=== PATIENT | female | born 1990 | race African-American/Black ===

== ENCOUNTER 2025-02-15 06:23 | Inpatient (IN) ==
[2025-02-15] MEDS ORDERED: REGLAN INJ 10 MG VIAL IVP PRN (06:44)
[2025-02-15] MEDS ORDERED: ZOFRAN INJ 4 MG VIAL IVP PRN (06:44)
[2025-02-15] MEDS ORDERED: NUBAIN INJ 20 MG AMP IVP PRN (06:44)
[2025-02-15] MEDS: D5 1/2 NS 1,000 ML 1,000 ML IV SCH (06:53)
[2025-02-15] MEDS: OXYTOCIN 20 UNIT/1,000 ML-NS 20 UNIT/1,000 ML PLAST..BAG IV PRN (07:10)
--- NOTE | 2025-02-15 07:19 | DR.OB ---
OB QUICK NOTE Assessment/Plan (1) Elective induction of labor planned: Assessment/Plan: L&D 02/15/25 at 7:00am S-No complaint. O-Afebrile,VSS [id number] with good LTV, +accel, no decel. CTX=none CVX=3cm/50%/-1/VTX AROM with clear fluid. IUPC and FSE placed. A-IUP at 39 4/7 weeks for induction P-Begin pitocin induction F/U labs Anticipate
[2025-02-15] MEDS: LR 1,000 ML IV 1,000 ML IV ONE (08:38)
[2025-02-15] MEDS: FENTANYL VIAL INJ 100 mcg ONE (09:16)
[2025-02-15] MEDS: NAROPIN EPIDURAL 0.2% 100 ML ONE (09:16)
[2025-02-15] MEDS: BETADINE SOLN ONE (10:00)
[2025-02-15] MEDS: PITOCIN IVP ONE (10:12)
--- NOTE | 2025-02-15 10:19 | DR.OB ---
OB QUICK NOTE Assessment/Plan (1) Elective induction of labor planned: Assessment/Plan: Delivery Note DECK OFFICER 02/15/25 at 10:08am Patient complete and pushing. Mother and stable. Head delivered over intact perineum. No nuchal cord. Nose and mouth bulb suctioned. Body delivered over intact perineum. Cord clamped x 2 and cut. Infant handed to attendant. Cord sent for gases. Placenta delivered spontaneously / intact / 3 vessel cord. No CVX / vaginal / perineal tears noted. Viable male infant delivered by , VTX/OA, wt=5'15" and 8/9, stable to NBN. Mother stable to RR. BFB=118eg.
[2025-02-15] MEDS: OXYTOCIN 20 UNIT/1,000 ML-NS 20 UNIT/1,000 ML PLAST..BAG IV SCH (11:25)
[2025-02-15] MEDS ORDERED: MILK OF MAGNESIA PO PRN (11:33)
[2025-02-15] MEDS ORDERED: MOTRIN TAB 800 MG PO PRN (11:33)
[2025-02-15] MEDS ORDERED: AMBIEN PO PRN (11:33)
[2025-02-15] MEDS: FERROUS GLUCONATE PO SCH (16:20)
[2025-02-15] MEDS: MOTRIN TAB 800 MG PO PRN (16:22)
[2025-02-15] MEDS: ADACEL or BOOSTRIX TDaP VACCINE IM ONE (16:23)
[2025-02-15] MEDS: DERMOPLAST PAIN RELIEF SPRAY TOP PRN (16:24)
[2025-02-16 03:29] VITALS: RESP 20
[2025-02-16 04:59] VITALS: O2SAT 99
[2025-02-16 05:27] LABS: HEMATOCRIT 27.6 % (36.0-47.0); HEMOGLOBIN 9.1 g/dL (12.0-16.0)
[2025-02-16] MEDS: PRENATAL PLUS PO SCH (08:46)
[2025-02-16] MEDS: PROTONIX TAB 40 MG PO SCH (08:46)
[2025-02-16 10:57] VITALS: BP 118/74; PULSE 79; TEMP 97.2
== END 2025-02-16 13:00 | disposition home or self-care (01) | DRG 807 ==
LOC: LD 06:23 → MED/SURG 11:15
PROVIDERS: ADMIT Specialist; ATTEND Specialist
DX: O99.613 Diseases of the digestive system complicating pregnancy, third trimester; Z3A.39 39 weeks gestation of pregnancy; Z37.0 Single live birth; O99.013 Anemia complicating pregnancy, third trimester; D50.8 Other iron deficiency anemias; K21.9 Gastro-esophageal reflux disease without esophagitis; Z01.812 Encounter for preprocedural laboratory examination